=== PATIENT | female | born 1955 | race African-American/Black ===

== ENCOUNTER 2017-10-20 10:03 | Emergency (ER) | payer OTHER ==
[2017-10-20 10:13] VITALS: TEMP 98.4
[2017-10-20] MEDS ORDERED: methylPREDNISolone SOD SUCC 125 MG/2 ML VIAL IVP ONE (10:34)
[2017-10-20] MEDS ORDERED: RANITIDINE 50 MG/2 ML VIAL IVP ONE (10:34)
[2017-10-20] MEDS ORDERED: NS 1,000 ML IV ONE (10:34)
--- NOTE | 2017-10-20 10:37 | EDPHY ---
H & P Stated Complaint: lip swelling since yesterday afternoon, numbness Time Seen by Provider: 10/20/17 10:25 HPI/ROS: CHIEF COMPLAINT: Edema HISTORY OF PRESENT ILLNESS: The patient is a 62-year-old female who comes to the emergency department complaining of upper lip swelling and feeling of numbness in her upper lips and cheeks. This began yesterday on the right upper lip and today has progressed to bilateral. She has not had a fever. No shortness of breath. No intraoral swelling. No GI symptoms. No skin symptoms. She does take lisinopril for several years. She does not know of any other exposures or allergies. No new medications. REVIEW OF SYSTEMS: Constitutional: denies: chills, fever, recent illness, recent injury EENTM: See HPI Respiratory: denies: cough, shortness of breath Cardiac: denies: chest pain, irregular heart rate, lightheadedness, palpitations Gastrointestinal/Abdominal: denies: abdominal pain, diarrhea, nausea, vomiting, blood streaked stools Genitourinary: denies: dysuria, frequency, hematuria, pain Musculoskeletal: denies: joint pain, muscle pain Skin: denies: lesions, rash, jaundice, bruising Neurological: denies: headache, numbness, paresthesia, tingling, dizziness, weakness Hematologic/Lymphatic: denies: blood clots, easy bleeding, easy bruising Immunologic/allergic: denies: HIV/AIDS, transplant EXAM: GENERAL: Well-appearing, well-nourished and in no acute distress. HEAD: Atraumatic, normocephalic. EYES: Pupils equal round and reactive to light, extraocular movements intact, sclera anicteric, conjunctiva are normal. ENT: Mildly edematous upper lip equally bilateral. Very small the lesion on the mucosal aspect of the right upper lip that appears to be a bite georgina or trauma. TMs normal, nares patent, oropharynx clear without exudates. No intraoral swelling. Moist mucous membranes. No stridor NECK: Normal range of motion, supple without lymphadenopathy or JVD. LUNGS: Breath sounds clear to auscultation bilaterally and equal. No wheezes rales or rhonchi. HEART: Regular rate and rhythm without murmurs, rubs or gallops. ABDOMEN: Soft, nontender, normoactive bowel sounds. No guarding, no rebound. No masses appreciated. BACK: No CVA tenderness, no spinal tenderness, step-offs or deformities EXTREMITIES: Normal range of motion, no pitting or edema. No clubbing or cyanosis. NEUROLOGICAL: Cranial nerves II through XII grossly intact. Normal speech, normal gait. 5/5 strength, normal movement in all extremities, normal sensation PSYCH: Normal mood, normal affect. SKIN: Warm, dry, normal turgor, no visible rashes or lesions. Source: Patient Exam Limitations: No limitations - Personal History Current Tetanus/Diphtheria Vaccine: Yes - Medical/Surgical History Hx Asthma: No Hx Chronic Respiratory Disease: No Hx Diabetes: Yes Hx Cardiac Disease: No Hx Renal Disease: No Hx Cirrhosis: No Hx Alcoholism: No Hx HIV/AIDS: No Hx Splenectomy or Spleen Trauma: No Other PMH: HTN. Grave's. Diabetes. Cholesterol. Rhinoplasty. Hystorectomy. knee surgery - Family History Significant Family History: No pertinent family hx - Social History Alcohol Use: Sober Drug Use: None Constitutional: Initial Vital Signs Temperature (C) 36.9 C 10/20/17 10:09 Heart Rate 87 10/20/17 10:09 Respiratory Rate 20 10/20/17 10:09 Blood Pressure 124/88 H 10/20/17 10:09 O2 Sat (%) 94 10/20/17 10:09 O2 Delivery Mode Room Air Allergies/Adverse Reactions: hydrocodone [Hydrocodone] Allergy (Mild, Verified 10/20/17 10:13) itch Home Medications: Medication Instructions Recorded FLUoxetine 10/20/17 Levothyroxine 10/20/17 Lisinopril 10/20/17 Propranolol HCl 10/20/17 Simvastatin 10/20/17 predniSONE 60 mg PO DAILY #9 tab 10/20/17 Medical Decision Making ED Course/Re-evaluation: 11:30 a.m. the patient's symptoms are stable and unchanged. We will continue to observe. 1:00 p.m. patient symptoms have began to improve. She is eager to go home. We discussed strict return precautions. At this point she does not appear to need plasmapheresis or bradycardia in inhibitors etc. I will prescribe her prednisone. She will discontinue lisinopril and speak with her doctor about other options. Differential Diagnosis: Partial list of the Differential diagnosis considered include but were not limited to; angioedema, BELKIS-inhibitor, genetic, allergic and although unlikely based on the history and physical exam, I also considered trauma, infection. I discussed these differential diagnoses and the plan with the patient as well as the usual and expected course. The patient understands that the diagnosis is provisional and that in medicine we are not always correct and that further workup is often warranted. Usual and customary warnings were given. All of the patient's questions were answered. The patient was instructed to return to the emergency department should the symptoms at all worsen or return, otherwise to followup with the physician as we discussed. - Data Points Medications Given: Discontinued Medications Diphenhydramine HCl (Benadryl Injection) 50 mg IVP EDNOW ONE Stop: 10/20/17 10:35 Last Admin: 10/20/17 10:46 Dose: 50 mg Sodium Chloride (Ns) 1,000 mls @ 0 mls/hr IV ONCE ONE; Wide Open PRN Reason: Protocol Stop: 10/20/17 10:35 Last Admin: 10/20/17 10:41 Dose: 1,000 mls Methylprednisolone Sodium Succinate (Solu-Medrol) 125 mg IVP EDNOW ONE Stop: 10/20/17 10:35 Last Admin: 10/20/17 10:42 Dose: 125 mg Ranitidine HCl (Zantac) 50 mg IVP EDNOW ONE Stop: 10/20/17 10:35 Last Admin: 10/20/17 10:51 Dose: 50 mg Departure - Departure Disposition: Home, Routine, Self-Care Clinical Impression: Angioedema Qualifiers: Encounter type: initial encounter Qualified Code(s): T78.3XXA - Angioneurotic edema, initial encounter Condition: Fair Instructions: Angioedema (ED) Referrals: Shreyas Rudolph MD [Primary Care Provider] - 5-7 days, call for appt. Prescriptions: predniSONE 60 mg PO DAILY #9 tab
[2017-10-20 12:05] VITALS: O2SAT 93
[2017-10-20 13:28] VITALS: BP 133/82; PULSE 82; RESP 18
== END 2017-10-20 13:26 | disposition home or self-care (01) ==
LOC: CED 10:03
DX: T78.3XXA Angioneurotic edema, initial encounter (principal); E11.9 Type 2 diabetes mellitus without complications; I10 Essential (primary) hypertension; E86.9 Volume depletion, unspecified
CPT/HCPCS: 96374; J1200; J2780; J2930

== ENCOUNTER → 2017-11-01 | Outpatient (CLI) | payer OTHER | LOC: CIMAGING 07:43 | PROVIDERS: ATTEND Internal Medicine | DX: Z12.31 Encounter for screening mammogram for malignant neoplasm of breast (principal) | CPT/HCPCS: G0202 ==

== ENCOUNTER 2018-04-22 14:41 | Emergency (ER) | payer OTHER ==
--- NOTE | 2018-04-22 15:16 | EDPHY ---
H & P Stated Complaint: Generalized abdominal pain since 0200 today and R arm tingling now. Time Seen by Provider: 04/22/18 14:52 HPI/ROS: CHIEF COMPLAINT: Abdominal pain HISTORY OF PRESENT ILLNESS: This is a 63-year-old female in general good health who presents with 12 hr of generalized abdominal pain that comes in waves. At its worst she rates it as a 7/10. She has never experienced anything like this before. She feels that her abdomen is bloated. She has had some belching. She continues with flatus but not an excessive amount. She had a normal bowel movement this morning. She has not had recent constipation or diarrhea. She does not have nausea or vomiting. She has not had fever. She denies any urinary symptoms. She took a liquid antacid 2 hr ago. REVIEW OF SYSTEMS: A ten point review of systems was performed and is negative with the exception of the items mentioned in the HPI. She also mentions some tingling in her right forearm and hand. She noticed this while at home, prior coming to the ED , and during the car ride. However, it has now almost entirely subsided. No weakness. No recent trauma. She does not do work that involves repetitive movement with her arm or hand. Past medical history: 1. Graves disease 2. Hyperlipidemia 3. Migraine headaches Past surgical history: 1. Left knee surgery 2. Hysterectomy 3. Tonsillectomy 4. 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 She does not use tobacco or alcohol products. General Appearance: Alert. Vital signs reviewed. Blood pressure 143/96 at triage. Afebrile. Eyes: Pupils equal and round, no conjunctival injection, no discharge. Anicteric. ENT, Mouth: Mucous membranes are moist, no oropharyngeal erythema or edema. Neck: No lymphadenopathy. Respiratory: Lungs are clear to auscultation; no wheezes, rales, or rhonchi. Cardiovascular: Regular rate and rhythm; no murmur, rub, or gallop. Gastrointestinal: Abdomen is soft and nontender, no masses or organomegaly, bowel sounds normal. Skin: Warm and dry, no rashes on exposed skin, normal color. Back: Nontender to palpation over the thoracolumbar spine. No CVAT. Extremities: No lower extremity edema, no calf tenderness or swelling. Neurological: Alert and oriented. Moving all four extremities easily and equally. Psychiatric: Normal affect. - Personal History Current Tetanus Diphtheria and Acellular Pertussis (TDAP): Yes Tetanus Vaccine Date: within 10 years - Medical/Surgical History Hx Asthma: No Hx Chronic Respiratory Disease: No Hx Diabetes: No Hx Cardiac Disease: No Hx Renal Disease: No Hx Cirrhosis: No Hx Alcoholism: No Hx HIV/AIDS: No Hx Splenectomy or Spleen Trauma: No Other PMH: HTN, TONA. Grave's disease. High Cholesterol. Rhinoplasty. Hysterectomy. Tonsillectomy. L knee surgery - Social History Smoking Status: Never smoked Constitutional: Initial Vital Signs Temperature (C) 37 C 04/22/18 14:42 Heart Rate 74 04/22/18 14:42 Respiratory Rate 18 04/22/18 14:42 Blood Pressure 143/96 H 04/22/18 14:42 O2 Sat (%) 94 04/22/18 14:42 O2 Delivery Mode Room Air Allergies/Adverse Reactions: hydrocodone [Hydrocodone] Allergy (Verified 04/22/18 14:50) Pt reports itching lisinopril Allergy (Verified 04/22/18 14:50) Pt reports Swelling/neck,face,throat Home Medications: Medication Instructions Recorded FLUoxetine 10/20/17 Levothyroxine 10/20/17 Propranolol HCl 10/20/17 Simvastatin 10/20/17 Hydrochlorothiazide 04/22/18 Relpax 04/22/18 Medical Decision Making ED Course/Re-evaluation: Generalized abdominal pain and abdominal bloating. Abdominal exam is without significant localized tenderness. Bowel sounds are present. Will check CBC, chemistries, liver functions, and lipase. She has taken a Mylanta or similar antacid prior to coming to the emergency department. Patient re-evaluated at 3:50 p.m.. She has been pain-free since my initial interview. Comprehensive metabolic panel has returned and shows normal liver functions and normal bilirubin. Lipase is normal. However, her creatinine is 1.2. On 2017 she had a creatinine of 0.9. I note that she is mildly hypertensive in the emergency department. In the past she took an antihypertensive medication but discontinued it and had been doing fine. I discussed her elevated creatinine level and have advised her to have this followed up by her primary care physician, along with her blood pressure. She agrees to do this. She understands the importance of follow-up. She continued to be pain-free. She was given Pepcid in the emergency department. She was examined for 3rd time in continued with a soft nontender abdomen. She feels comfortable returning home and I agree that no further evaluation is needed at this time. Danger signs were reviewed with her. I suspect that her pain is due to gas and abdominal bloating. Differential Diagnosis: Abdominal pain including but not limited to appendicitis, SBO, cholecystitis, gastritis/peptic ulcer disease and urinary tract infection. - Data Points Laboratory Results: Laboratory Results 04/22/18 15:10 04/22/18 04/22/18 04/22/18 15:17 15:10 15:10 WBC 6.01 10^3/uL 10^3/uL (3.80-9.50) RBC 5.10 10^6/uL 10^6/uL (4.18-5.33) Hgb 15.8 g/dL g/dL (12.6-16.3) Hct 45.2 % % (38.0-47.0) MCV 88.6 fL fL (81.5-99.8) MCH 31.0 pg pg (27.9-34.1) MCHC 35.0 g/dL g/dL (32.4-36.7) RDW 13.5 % % (11.5-15.2) Plt Count 313 10^3/uL 10^3/uL (150-400) MPV 10.9 fL fL (8.7-11.7) Neut % (Auto) 44.0 % % (39.3-74.2) Lymph % (Auto) 45.8 % H % (15.0-45.0) [place] % (Auto) 8.0 % % (4.5-13.0) Eos % (Auto) 1.7 % % (0.6-7.6) Baso % (Auto) 0.3 % % (0.3-1.7) Nucleat RBC Rel Count 0.0 % % (0.0-0.2) Absolute Neuts (auto) 2.65 10^3/uL 10^3/uL (1.70-6.50) Absolute Lymphs (auto) 2.75 10^3/uL 10^3/uL (1.00-3.00) Absolute Monos (auto) 0.48 10^3/uL 10^3/uL (0.30-0.80) Absolute Eos (auto) 0.10 10^3/uL 10^3/uL (0.03-0.40) Absolute Basos (auto) 0.02 10^3/uL 10^3/uL (0.02-0.10) Absolute Nucleated RBC 0.00 10^3/uL 10^3/uL (0-0.01) Immature Gran % 0.2 % % (0.0-1.1) Immature Gran # 0.01 10^3/uL 10^3/uL (0.00-0.10) POC Sodium 142 mEq/L mEq/L (135-145) POC Potassium 3.8 mEq/L mEq/L (3.3-5.0) POC Chloride 106.0 mEq/L mEq/L (97-110) POC Total CO2 24 mEq/L mEq/L (22-31) POC BUN 10 mg/dL mg/dL (7-23) POC Creatinine 1.2 mg/dL H mg/dL (0.6-1.0) POC Glucose 106 mg/dL H mg/dL (70-100) POC Calcium 9.1 mg/dL mg/dL (8.5-10.4) POC Total Bilirubin 0.6 mg/dL mg/dL (0.1-1.4) POC AST 24 IU/L IU/L (14-46) POC ALT 20 IU/L IU/L (9-52) POC Alk Phosphatase 95 IU/L IU/L (38-126) POC Total Protein 7.6 g/dL g/dL (6.3-8.2) POC Albumin 3.8 g/dL g/dL (3.5-5.0) Lipase 163 IU/L IU/L (23-300) Medications Given: Discontinued Medications Famotidine (Pepcid) 20 mg PO EDNOW ONE Stop: 04/22/18 16:09 Last Admin: 04/22/18 16:12 Dose: 20 mg Point of Care Test Results: Chemistry 04/22/18 15:17 POC Sodium 142 mEq/L mEq/L (135-145) POC Potassium 3.8 mEq/L mEq/L (3.3-5.0) POC Chloride 106.0 mEq/L mEq/L (97-110) POC Total CO2 24 mEq/L mEq/L (22-31) POC BUN 10 mg/dL mg/dL (7-23) POC Creatinine 1.2 mg/dL H mg/dL (0.6-1.0) POC Glucose 106 mg/dL H mg/dL (70-100) POC Calcium 9.1 mg/dL mg/dL (8.5-10.4) POC Total Bilirubin 0.6 mg/dL mg/dL (0.1-1.4) POC AST 24 IU/L IU/L (14-46) POC ALT 20 IU/L IU/L (9-52) POC Alk Phosphatase 95 IU/L IU/L (38-126) POC Total Protein 7.6 g/dL g/dL (6.3-8.2) POC Albumin 3.8 g/dL g/dL (3.5-5.0) Departure - Departure Disposition: Home, Routine, Self-Care Clinical Impression: Abdominal pain Qualifiers: Abdominal location: generalized Qualified Code(s): R10.84 - Generalized abdominal pain Condition: Good Instructions: Gas and Bloating (ED), Abdominal Pain (ED) Additional Instructions: I think that your abdominal pain is most likely due to gas and bloating, just as you sought. Continue with Mylanta if needed. If your symptoms change or worsen you should be re-evaluated--fever, vomiting, diarrhea, any new or concerning symptoms. As we discussed, your creatinine today was 1.2. On February 22 of this year your creatinine was normal at 0.9. Your blood pressure was also slightly elevated today with an initial blood pressure reading of 143/96. Please see Dr. Rudolph within the next week or 2 to have both of these followed up. Referrals: Shreyas Rudolph MD [Primary Care Provider] - As per Instructions
[2018-04-22 16:08] LABS: PLATELET COUNT 313 10^3/uL (150-400)
[2018-04-22] MEDS ORDERED: FAMOTIDINE 20 MG TAB PO ONE (16:08)
[2018-04-22 16:46] VITALS: BP 126/82
== END 2018-04-22 16:44 | disposition home or self-care (01) ==
LOC: CED 14:41
DX: R10.84 Generalized abdominal pain (principal); I10 Essential (primary) hypertension; Z90.710 Acquired absence of both cervix and uterus
CPT/HCPCS: 80053-PO

== ENCOUNTER → 2019-04-13 | Outpatient (CLI) | payer OTHER | LOC: EMCIMAGING 09:53 | PROVIDERS: ATTEND Internal Medicine | DX: Z12.31 Encounter for screening mammogram for malignant neoplasm of breast (principal) | CPT/HCPCS: 77067-PN ==